=== PATIENT | female | born 1990 | race Caucasian/White ===

== ENCOUNTER 2022-10-24 16:05 | Emergency (ER) | payer OTHER, SELFPAY ==
[2022-10-24 17:27] VITALS: BP 121/88; PULSE 118; RESP 18; TEMP 37.2; O2SAT 100
== END 2022-10-24 17:44 | disposition left against medical advice (07) ==
PROVIDERS: Emergency Provider Nurse Practitioner
DX: R50.9 Fever, unspecified (principal); R05.9 Cough, unspecified
CPT/HCPCS: 99199